=== PATIENT | female | born 1945 | race African-American/Black ===

== ENCOUNTER 2018-12-09 11:59 | Inpatient (IN) | payer MEDICARE, MEDICAID ==
[~2018-12-09] VITALS: Ht 167.6 cm; Wt 84.5 kg
[~2018-12-09 11:59] MED LIST: AMLODIPINE BESY10 MG ORAL; ASPIRIN EC81 MG ORAL; BENAZEPRIL HCL40 MG PO; CLARITIN10 MG ORAL; DIOVAN160 MG ORAL; FLONASE ALLERG9.9 ML NS; HYDROCHLOROTHIA25 MG PO; LORATADINE10 M2 PO; METOPROLOL SUCC50 MG ORAL; METOPROLOL TART25 MG ORAL; METOPROLOL TART50 M1 ORAL; NORVASC5 MG PO; TENORMIN25 MG PO; VITAMIN D1000 UNI1 ORAL; XARELTO10 MG ORAL
[2018-12-09 12:10] VITALS: BP 143/80
--- NOTE | 2018-12-09 12:10 | NUR ---
ED Nurse Note: AMBULATED IN TO ER DUE TO SOB SINCE THIS MORNING. RA, O2 OF 100%. NO HX OF COPD, ASTHMA. PT STATES THAT SHE HAS ANXIETY. NO LABOR BREATHING AT THIS TIME.
[2018-12-09 12:56] VITALS: BP 145/85
[2018-12-09 13:00] LABS: BASOPHILS % (AUTO) 0.8 % (0.0-2.0); EOSINOPHILS % (AUTO) 0.6 % (0.0-3.0); HEMATOCRIT 43.5 % (37.0-47.0); LYMPHOCYTES % (AUTO) 21.2 % (20.0-45.0); MEAN CORPUSCULAR VOLUME 92 FL (80-99); MONOCYTES % (AUTO) 6.4 % (1.0-10.0); PLATELET COUNT 290 K/UL (150-450); RED BLOOD COUNT 4.71 M/UL (4.20-5.40); RED CELL DISTRIBUTION WIDTH 12.3 % (11.6-14.8)
[2018-12-09 13:12] LABS: ANION GAP 9 mmol/L (5-15); BLOOD UREA NITROGEN 27 mg/dL (7-18); CALCIUM 10.2 MG/DL (8.5-10.1); CARBON DIOXIDE 29 MMOL/L (21-32); CHLORIDE 102 MMOL/L (98-107); CREATININE 1.3 MG/DL (0.55-1.30); POTASSIUM 3.5 MMOL/L (3.5-5.1); SODIUM 140 MMOL/L (136-145)
--- NOTE | 2018-12-09 13:19 | Emergency Room Report ---
History of Present Illness General Chief Complaint: Dyspnea/Respdistress Source: Patient Present Illness HPI Patient presents with complaints of chest pain and heaviness also complains of exertional dyspnea Denies any vomiting or diarrhea Denies any pleurisy Denies any recent travel Denies any change with position Patient has not had any change with her medications reports that she saw her physician last week Allergies: Coded Allergies: CLONIDINE (Verified Allergy, Unknown, 07/06/16) feels like fading away TOMATO (Verified Allergy, Unknown, 09/27/15) Uncoded Allergies: tomato sauce (Allergy, Unknown, 09/27/15) Patient History Past Medical History: see triage record Pertinent Family History: none Reviewed Nursing Documentation: PMH: Agreed; PSxH: Agreed Nursing Documentation-PMH Past Medical History: No History, Except For Hx Cardiac Problems: Yes - DVT Hx Hypertension: Yes Hx Diabetes: No Hx Cancer: No Hx Gastrointestinal Problems: Yes Hx Neurological Problems: No Hx Syncope: Yes Hx Weakness: Yes Hx Fatigue: Yes Review of Systems All Other Systems: negative except mentioned in HPI Physical Exam Vital Signs Date Time Temp Pulse Resp B/P (MAP) Pulse Ox O2 Delivery O2 Flow Rate FiO2 12/09/18 12:03 98.4 110 22 158/102 91 Room Air Sp02 EP Interpretation: reviewed, normal General Appearance: well appearing, no apparent distress Head: normocephalic, atraumatic Eyes: bilateral eye PERRL, bilateral eye EOMI ENT: hearing grossly normal, normal pharynx, TMs + canals normal, uvula midline Neck: full range of motion, supple, no meningismus, no bony tend Respiratory: lungs clear, normal breath sounds, no rhonchi, no respiratory distress, no retraction, no accessory muscle use Cardiovascular #1: normal peripheral pulses, regular rate, rhythm, no edema, no gallop, no JVD, no murmur Gastrointestinal: normal bowel sounds, non tender, soft, no mass, no organomegaly, non-distended, no guarding, no hernia, no pulsatile mass, no rebound Genitourinary: no CVA tenderness Musculoskeletal: normal inspection Neurologic: oriented x3, responsive, fire services plumber III-XII nml as tested, motor strength/ tone normal, sensory intact Psychiatric: mood/affect normal Skin: normal color, no rash, warm/dry, palpation normal Lymphatic: normal inspection, no adenopathy Medical Decision Making Diagnostic Impression: Primary Impression: Dyspnea Additional Impressions: ACS (acute coronary syndrome) NSTEMI (non-ST elevated myocardial infarction) ER Course Patient is a fairly complex patient with multiple differential to consideration including but not limited to cardiac cardiopulmonary and vascular emergencies Patient's blood work reveals elevated troponin Patient is provided with aspirin Consideration for pulmonary ambles him is also made however patient does not show any signs of pleurisy or hypoxia Patient will have further inpatient care Labs Test 12/09/18 12:40 White Blood Count 7.0 K/UL (4.8-10.8) Red Blood Count 4.71 M/UL (4.20-5.40) Hemoglobin 14.0 G/DL (12.0-16.0) Hematocrit 43.5 % (37.0-47.0) Mean Corpuscular Volume 92 FL (80-99) Mean Corpuscular Hemoglobin 29.7 PG (27.0-31.0) Mean Corpuscular Hemoglobin Concent 32.2 G/DL (32.0-36.0) Red Cell Distribution Width 12.3 % (11.6-14.8) Platelet Count 290 K/UL (150-450) Mean Platelet Volume 5.7 FL (6.5-10.1) Neutrophils (%) (Auto) 71.0 % (45.0-75.0) Lymphocytes (%) (Auto) 21.2 % (20.0-45.0) Monocytes (%) (Auto) 6.4 % (1.0-10.0) Eosinophils (%) (Auto) 0.6 % (0.0-3.0) Basophils (%) (Auto) 0.8 % (0.0-2.0) Sodium Level 140 MMOL/L (136-145) Potassium Level 3.5 MMOL/L (3.5-5.1) Chloride Level 102 MMOL/L (98-107) Carbon Dioxide Level 29 MMOL/L (21-32) Anion Gap 9 mmol/L (5-15) Blood Urea Nitrogen 27 mg/dL (7-18) Creatinine 1.3 MG/DL (0.55-1.30) Estimat Glomerular Filtration Rate mL/min (>60) Glucose Level 150 MG/DL (74-106) Calcium Level 10.2 MG/DL (8.5-10.1) Total Bilirubin 0.4 MG/DL (0.2-1.0) Aspartate Amino Transf (AST/SGOT) 28 U/L (15-37) Alanine Aminotransferase (ALT/SGPT) 31 U/L (12-78) Alkaline Phosphatase 103 U/L (46-116) Total Creatine Kinase 89 U/L (26-308) Creatine Kinase MB 3.6 NG/ML (0.0-3.6) Creatine Kinase MB Relative Index 4.0 Troponin I 0.507 ng/mL (0.000-0.056) Pro-B-Type Natriuretic Peptide 88 pg/mL (0-125) Total Protein 9.1 G/DL (6.4-8.2) Albumin 3.9 G/DL (3.4-5.0) Globulin 5.2 g/dL Albumin/Globulin Ratio 0.8 (1.0-2.7) EKG Diagnostic Results Rate: normal Rhythm: NSR ST Segments: other - Nonspecific ST changes, nonspecific interventricular block Rhythm Strip Diag. Results EP Interpretation: yes Rate: 90 Rhythm: NSR, no PVC's, no ectopy Chest X-Ray Diagnostic Results Chest X-Ray Diagnostic Results : Chest X-Ray Ordered: Yes # of Views/Limited/Complete: 1 View Indication: Chest Pain EP Interpretation: Yes Interpretation: no consolidation, no effusion, no pneumothorax Impression: No acute disease Electronically Signed by: Priscilla Mora DO Last Vital Signs Date Time Temp Pulse Resp B/P (MAP) Pulse Ox O2 Delivery O2 Flow Rate FiO2 12/09/18 12:56 98.0 110 17 145/85 100 Room Air Status: improved Disposition: ADMITTED INPATIENT Condition: Serious Referrals: Mumtaz Mcclelland MD (PCP) Priscilla Mora DO Dec 09, 2018 13:19
[2018-12-09 13:26] LABS: ALANINE AMINOTRANSFERASE 31 U/L (12-78); ALBUMIN 3.9 G/DL (3.4-5.0); ALBUMIN/GLOBULIN RATIO 0.8 (1.0-2.7); ALKALINE PHOSPHATASE 103 U/L (46-116); ASPARTATE AMINO TRANSFERASE 28 U/L (15-37); BILIRUBIN,TOTAL 0.4 MG/DL (0.2-1.0); CKMB 3.6 NG/ML (0.0-3.6); CREATINE KINASE 89 U/L (26-308)
[2018-12-09 14:22] VITALS: BP 145/85
--- NOTE | 2018-12-09 14:37 | Diagnostic Imaging Report ---
Indication: Shortness of breath Technique: One view of the chest Comparison: 09/26/2015 Findings: The heart is borderline enlarged. The lungs and pleural spaces remain clear. Impression: Borderline cardiomegaly. No acute process
--- NOTE | 2018-12-09 14:39 | NUR ---
ED Nurse Note: per patient she had aspirin 325mg today morning, ERMD notifyed, will not administed aspirin 325mg.
--- NOTE | 2018-12-09 15:26 | NUR ---
ED Nurse Note: tryed to give report to MANUEL Louie unsuccessfully.
--- NOTE | 2018-12-09 16:00 | NUR ---
NURSE NOTES: I received the patient from the ER. Patient alert and oriented x4. Patient's belongings reviewed and confirmed. Patient's IV intact. Patient oriented to the room and the use of the call light. Bed in the lowest position and call light within reach.
--- NOTE | 2018-12-09 16:08 | NUR ---
ED Nurse Note: patient was admited to tele, report was given to MANUEL Louie. AAO x 4, VSS at this time, ambulatory. patient was transfered by ACLS protocol.
[2018-12-09] MEDS ORDERED: LATANOPROST 0.7.5 ML OP (17:16)
[2018-12-09] MEDS ORDERED: ASPIRIN500 MG ORAL (17:16)
[2018-12-09] MEDS ORDERED: MULTIVITAMINS1 EAC2 ORAL (17:55)
[2018-12-09] MEDS ORDERED: LOSARTAN POTAS100 MG ORAL (17:55)
[2018-12-09 19:01] LABS: BASOPHILS % (AUTO) 0.8 % (0.0-2.0); EOSINOPHILS % (AUTO) 0.4 % (0.0-3.0); HEMATOCRIT 37.8 % (37.0-47.0); HEMOGLOBIN 12.6 G/DL (12.0-16.0); LYMPHOCYTES % (AUTO) 24.8 % (20.0-45.0); MEAN CORPUSCULAR VOLUME 91 FL (80-99); MONOCYTES % (AUTO) 6.5 % (1.0-10.0); NEUTROPHILS % (AUTO) 67.4 % (45.0-75.0); PLATELET COUNT 259 K/UL (150-450); RED BLOOD COUNT 4.16 M/UL (4.20-5.40); RED CELL DISTRIBUTION WIDTH 11.9 % (11.6-14.8); WHITE BLOOD COUNT 9.8 K/UL (4.8-10.8)
[2018-12-09 19:19] LABS: CKMB 7.2 NG/ML (0.0-3.6)
[2018-12-09] MEDS: Losartan 50mg tab ORAL SCH (19:24)
--- NOTE | 2018-12-09 19:31 | NUR ---
NURSE NOTES: Message left for Dr. Mcclelland making him aware of the patient's troponin level.
--- NOTE | 2018-12-09 19:43 | NUR ---
HAND-OFF: Report given to MANUEL Strickland.
--- NOTE | 2018-12-09 19:46 | NUR ---
NURSE NOTES: RECEIVED PATIENT RESTING IN BED, NO COMPLAINTS OF CHEST PAIN OR SOB AT THIS TIME. FALL PRECAUTIONS IN PLACE: CALL LIGHT AND BEDSIDE TABLE WITHIN REACH, BED IN LOW POSITION. WILL PLACE COMMODE AT BEDSIDE. WILL START HEPARIN DRIP ORDERED. TROPONIN 1.300, PER AM RN MESSAGE LEFT FOR DR. RODRIGUEZ. PLAN OF CARE REVIEWED WITH PATIENT.
[2018-12-09 20:00] VITALS: BP 124/88
[2018-12-09] MEDS: Heparin 25,000u/D5W 500ml 500 ML IV SCH (20:06)
--- NOTE | 2018-12-09 20:30 | NUR ---
NURSE NOTES: DR. RODRIGUEZ CALLED WITH DIET ORDER. AWARE OF TROPONIN LEVEL 1.300
[2018-12-09] MEDS: Metoprolol Succinate XL 50mg tab ORAL SCH (23:15)
--- NOTE | 2018-12-09 23:40 | NUR ---
NURSE NOTES: CALLED AND LEFT MESSAGE FOR DR. RODRIGUEZ TO ORDER PARAMETER FOR BP MEDS.
[2018-12-10] VITALS: BP 102/77
--- NOTE | 2018-12-10 02:16 | Consultation ---
DATE OF CONSULTATION: 12/10/2018 CARDIOLOGY CONSULTATION CONSULTING PHYSICIAN: Mumtaz Mcclelland M.D. REQUESTING PHYSICIAN: Beck Rose M.D. REASON FOR CONSULTATION: Elevated troponin level. HISTORY OF PRESENT ILLNESS: This is a 73-year-old female, known to me from prior care. She has a longstanding history of hypertensive heart disease and hyperlipidemia as well as hypercoagulable state with prior history of DVT. She has been off anticoagulation for at least the last 6 to 12 months following a negative follow up evaluation for DVT. She has had prior outpatient stress echocardiogram studies that have been entirely normal. She presented to the emergency room today complaining of shortness of breath with exertion and heaviness in her chest and weakness. Her initial troponin level was slightly negative and hospitalization was initiated. ALLERGIES: Include clonidine. PAST MEDICAL HISTORY: Notable for hypertension, glucose intolerance, hypercoagulable state, history of DVT, gastroesophageal reflux disease, allergic rhinitis, vitamin D deficiency, glaucoma, and history of pancreatic cyst. FAMILY HISTORY: Noncontributory. SOCIAL HISTORY: Negative for smoking, alcohol, or substance abuse. REVIEW OF SYSTEMS: A 10-point review of systems was otherwise negative. PHYSICAL EXAMINATION: VITAL SIGNS: Blood pressure 145/78, pulse 97, respirations 20, afebrile. LUNGS: Clear. CARDIAC: Regular. Normal S1, S2. There is a fourth heart sound. ABDOMEN: Soft. EXTREMITIES: No edema. LABORATORY AND DIAGNOSTIC DATA: White count 9.8 and hemoglobin 12.6. Troponin 1 is , troponin 2 is 1.3. CK is 104, MB is 7.2, index 6.9. Potassium 3.5, BUN 27, creatinine 1.3. EKG, sinus rhythm, nonspecific ST change. Venous duplex negative for DVT. IMPRESSION: 1. Acute myocardial infarction, non-ST elevation type. 2. Possible pulmonary embolic event. 3. Hypertensive heart disease. 4. History of hypercoagulability. 5. Glucose intolerance. PLAN: 1. Antiplatelet therapy. 2. IV heparin. 3. VQ scan. 4. Titrate antihypertensives. 5. Add beta-guille. 6. Check D-dimers. 7. Check venous duplex. 8. Further recommendations will follow based on clinical course and serial troponin level and lipid panel has been requested. 9. Statin therapy to be considered. Mumtaz Mcclelland M.D. DR: ROLAND JOB#: [id number] CC:
--- NOTE | 2018-12-10 02:58 | NUR ---
NURSE NOTES: PTT 73. PER PHARMACY AND HEPARIN DRIP PROTOCOL TO CONTINUE WITH PRESENT RATE 18 UNITS/KG/HR ( 30.42 ML/HR). NEXT PTT TOMORROW AT 0400
[2018-12-10 04:00] VITALS: BP 118/81
[2018-12-10 04:55] LABS: ALANINE AMINOTRANSFERASE 24 U/L (12-78); ALBUMIN 3.1 G/DL (3.4-5.0); ALBUMIN/GLOBULIN RATIO 0.7 (1.0-2.7); ALKALINE PHOSPHATASE 87 U/L (46-116); ANION GAP 5 mmol/L (5-15); ASPARTATE AMINO TRANSFERASE 26 U/L (15-37); BILIRUBIN,TOTAL 0.4 MG/DL (0.2-1.0); BLOOD UREA NITROGEN 23 mg/dL (7-18); CALCIUM 9.9 MG/DL (8.5-10.1); CARBON DIOXIDE 33 MMOL/L (21-32); CHLORIDE 106 MMOL/L (98-107); CHOLESTEROL 247 MG/DL (< 200); CREATININE 1.2 MG/DL (0.55-1.30); HDL CHOLESTEROL 112 MG/DL (40-60); POTASSIUM 3.8 MMOL/L (3.5-5.1); SODIUM 144 MMOL/L (136-145); TRIGLYCERIDES 38 MG/DL (30-150)
--- NOTE | 2018-12-10 06:31 | Consultation ---
DATE OF CONSULTATION: 12/09/2018 NOTE: POOR AUDIO HEMATOLOGY/ONCOLOGY CONSULTATION CONSULTING PHYSICIAN: Frank Thorne M.D. REFERRING PHYSICIAN: Mumtaz Mcclelland M.D. REASON FOR CONSULTATION: Hypercoagulable state shortness of breath and previous history of pulmonary embolus. HISTORY OF PRESENT ILLNESS: The patient is an extremely pleasant female, born on 1945. The patient has been known from outside visit in my office 2014. The patient was evaluated for shortness of breath. CT angiogram of the chest on 09/28/2015, which demonstrates evidence of bilateral pulmonary emboli. The patient subsequently had extensive hematologic evaluation. The patient's workup at that time was negative. The patient was treated with prolonged course of anticoagulants, subsequently she was taken off anticoagulants. The patient currently has presented to the hospital with significant shortness of breath. It should be noted that the patient has had an extensive history of underlying hypercoagulable state that has been negative. Imaging studies have also been negative for underlying malignancy. . The patient did undergo hypercoagulable evaluation with platelet mapping, did demonstrate evidence of as well as mild hypercoagulable state despite Xarelto. At that time, Xarelto was continued and aspirin twice a week was added. The patient also has had a history of pancreatic tail cystic lesion has been evaluated by MRI as well as GI evaluation by Dr. Armas. The patient has EUS. The patient did have repeat . Decision at some point subsequently to hold off on the patient's Xarelto and follow the patient clinically. The patient did have an MRI of her abdomen in November of 2016 demonstrating the same findings with cystic pancreatic lesion. We evaluated the patient in November of 2018. The patient's D-dimer at that time was noted to be 1.14. On 09/19/2018 to continue to hold off on anticoagulation . PAST MEDICAL HISTORY: History of vitamin D deficiency DVT, pulmonary embolism, history of hypertension, anemia, pulmonary hypertension, cardiomegaly, thyroid nodule, pulmonary embolus, liver lesion, hypercoagulable state, and pancreatic lesion. PAST SURGICAL HISTORY: History of hysterectomy in 1976. FAMILY HISTORY: History of sister with breast cancer and brother with liver cancer. SOCIAL HISTORY: No history of tobacco, alcohol, or drugs. REVIEW OF SYSTEMS: CONSTITUTIONAL: The patient headaches wake up early in the morning with shortness of breath. CARDIAC: The patient chest pain. NEUROLOGIC: No focal weakness or numbness. SKIN: The patient denies any bruising or petechia. PHYSICAL EXAMINATION: VITAL SIGNS: The patient has a pulse of 110, respiratory rate 17, blood pressure 143/80, and pulse oximetry 100%. Currently, the patient is not short of breath. CHEST: Clear to auscultation. CARDIAC: Regular rhythm. S1 and S2. ABDOMEN: Soft, nontender, and nondistended. No hepatosplenomegaly. EXTREMITIES: Trace edema. NEUROLOGICAL: Nonfocal. LABORATORY DATA: Include white count of 7, hemoglobin 14, and platelet count of 290. The patient has a calcium of 10.2, a creatinine of 1.3, alkaline phosphatase of 103. Troponin . The patient did undergo a chest x-ray this morning demonstrating borderline primary edema acute process. ASSESSMENT AND PLAN: 1. Acute onset of shortness of breath. The patient is in hypercoagulable state. The patient did undergo a may not be able to be done overnight. The patient will be started on heparin . The patient does have back on Xarelto full dose another bout of pulmonary embolus with known cause. The patient is to be on anticoagulation. 2. Pancreatic cyst. Follow with Dr. Thorne on an outpatient basis. 3. Increase ambulation. 4. Elevated troponin. Per Cardiology, Dr. Mcclelland. 5. Hypertension. Per Dr. Mcclelland. Frank Thorne M.D. DR: AURORA JOB#: [id number] CC:
--- NOTE | 2018-12-10 07:16 | NUR ---
NURSE NOTES: CALLED AND LEFT MESSAGE FOR DR. RODRIGUEZ RE: TROPONIN RESULT 1.275
--- NOTE | 2018-12-10 07:35 | NUR ---
HAND-OFF: Report given to MANUEL GUAJARDO. PATIENT RESTING IN BED, NO SIGNS OF BLEEDING OR DISTRESS NOTED.
--- NOTE | 2018-12-10 07:36 | NUR ---
NURSE NOTES: Received report from MANUEL Strickland. Patient is alert, oriented x4 and is in stable condition. Patient denies any pain discomfort at this time. Will continue plan of care.
[2018-12-10 08:00] VITALS: BP 135/88
[2018-12-10] MEDS: Aspirin Baby 81mg ORAL SCH (09:08)
[2018-12-10] MEDS: Losartan 50mg tab ORAL SCH (09:09)
[2018-12-10] MEDS: Metoprolol Succinate XL 50mg tab ORAL SCH (09:09)
--- NOTE | 2018-12-10 09:49 | NUR ---
CASE MANAGEMENT:REVIEW 73 YR OLD FEMALE TO ER CC : SOB SI: ACS. NSTEMI 98.4 110 22 158/102 91% ON RA TROPONIN(+) 0.507 AND 1.300 IS: ASA PO X1 BLOOD CX CHEST XRAY : TO TELEMETRY HEPARIN GTT ASA PO QD HCTZ PO QD TOPROL XL PO QD COZAAR PO QD INTERQUAL CRITERIA MET
[2018-12-10 12:00] VITALS: BP 119/80
--- NOTE | 2018-12-10 12:11 | Diagnostic Imaging Report ---
Indications: Shortness of breath, history of deep venous thrombosis Technique: IV administration 5.5 mCi 99m technetium macroaggregated albumin. Images obtained over the lungs in multiple projections. Previously, patient inhaled 40 mCi aerosolized 99M technetium DTPA. Images obtained over the lungs in multiple projections Comparison: Chest radiograph 12/09/2018 Findings: A mismatch perfusion defect is seen involving the right middle lobe. There is also decreased perfusion with normal aerosol mismatch involving the left lower lobe and the liver likely the posterior basilar right lower lobe. Lungs on chest radiograph appear normal. Impression: Multiple large perfusion/aerosol this matches. Findings are deemed high probability for pulmonary embolus Dr. Mcclelland notified of the findings at the time of interpretation
--- NOTE | 2018-12-10 13:00 | NUR ---
NURSE NOTES: Still running heparin drip with 30.42ml/hr.
--- NOTE | 2018-12-10 14:00 | NUR ---
NURSE NOTES: Still running heparin drip with 30.42ml/hr.
[2018-12-10] MEDS: Heparin 25,000u/D5W 500ml 500 ML IV SCH (14:53)
--- NOTE | 2018-12-10 14:53 | NUR ---
NURSE NOTES: Changed heparin drip bag with 30.42ml/hr. No s/s of bleeding noted. Patient denies any discomfort/pain. Will continue plan of care.
--- NOTE | 2018-12-10 15:21 | Cardiology Report ---
APPROVED REPORT EKG Measurement Heart [id number] NC 198P58 [id number] Sinus tachycardia Possible Left atrial enlargement Incomplete right bundle branch block Inferior infarct, age undetermined Anterior infarct, age undetermined Abnormal ECG
[2018-12-10 16:00] VITALS: BP 100/72
[2018-12-10] MEDS: Xarelto 15mg tab ORAL SCH (17:08)
--- NOTE | 2018-12-10 19:18 | NUR ---
NURSE NOTES: Received report from Yuki RN, pt. in bed awake, A/O x's4- able to make needs known, no signs or symptoms of acute cardiac or respiratory distress noted, bed in lowest position and call light within easy reach, pt. appears to be sating well on room air at 97%- no distress noted, per endorsement pt. ambulates with steady gate to bathroom- pt. is aware to ask for assistance when ambulating, Left AC 20G IV intact and patent, safety measures continued, will continue with plan of care.
--- NOTE | 2018-12-10 19:27 | NUR ---
HAND-OFF: Report given to MANUEL Cantu. Patient is in stable condition. Endorsed plan of care.
[2018-12-10 20:00] VITALS: BP 115/62
--- NOTE | 2018-12-10 23:31 | Progress Note ---
DATE: 12/10/2018 CARDIOLOGY PROGRESS NOTE SUBJECTIVE: The patient is without chest pain or shortness of breath today. Her ventilation/perfusion scan was high probability for pulmonary embolus. Troponin is 1.27 today. Laboratories are reviewed. High HDL of over 100 is noted. Albumin 3.1. OBJECTIVE: VITAL SIGNS: Blood pressure 119/80, pulse 76, and respirations 18. NECK: Supple. LUNGS: Clear. CARDIAC: Regular. ABDOMEN: Soft. EXTREMITIES: No edema. IMPRESSION: 1. Acute pulmonary embolus. 2. History of prior DVT. 3. History of hypercoagulable state. 4. Hypertensive heart disease. 5. High HDL syndrome. 6. Possible right ventricular injury. PLAN: 1. Discontinue IV heparin. 2. Start rivaroxaban 15 b.i.d. for 2 weeks followed by 20 mg daily indefinitely. 3. Discharge planning home. Mumtaz Mcclelland M.D. DR: MELANIE JOB#: [id number] CC:
[2018-12-11] VITALS: BP 128/79
--- NOTE | 2018-12-11 02:32 | History and Physical Report ---
DATE OF ADMISSION: 12/09/2018 CHIEF COMPLAINT: Chest pain. HISTORY OF PRESENT ILLNESS: The patient is a pleasant female. She has a history of hypercoagulable state, DVT, and PE. She presented from home with complaints of chest pain. According to the patient, she was well when she developed pressure-like chest pain. She denies any shortness of breath. On initial evaluation, her troponin was negative. She has been off anticoagulation for around a year now. Her EKG was also unchanged. She is now admitted for further evaluation of her chest pain. PAST MEDICAL HISTORY: As above. PAST SURGICAL HISTORY: None. CURRENT MEDICATIONS: Reconciled and reviewed. ALLERGIES: Include clonidine. FAMILY HISTORY: Noncontributory. SOCIAL HISTORY: There is no known history of tobacco, ethanol, or drugs. REVIEW OF SYSTEMS: GENERAL: No fevers or chills. HEENT: No headaches or visual changes. CARDIOPULMONARY: Positive chest pain, but no shortness of breath. GASTROINTESTINAL: No nausea or vomiting. GENITOURINARY: No urgency or frequency. MUSCULOSKELETAL: No joint pain or swelling. NEUROLOGIC: No evidence of seizures. PHYSICAL EXAMINATION: VITAL SIGNS: Temperature 98 degrees, blood pressure 140/70, pulse 80, respirations 20. GENERAL: The patient is well-developed, no apparent distress. HEART: Regular rate and rhythm. LUNGS: Clear. ABDOMEN: Soft, nontender, and nondistended. EXTREMITIES: Without clubbing, cyanosis, or edema. LABORATORY DATA: White count 10 and hemoglobin 12. Troponin was 0.507. ASSESSMENT: This is a pleasant female with history of hypercoagulable state, hypertension, GERD, vitamin D deficiency, admitted with chest pain, possibly secondary to either acute coronary syndrome or PE. PLAN: Heparin drip. Followup VQ scan. Cardiology and Hematology and Oncology consultations. Further plan of care will be determined after review of pending tests. Beck Rose M.D. DR: ROD JOB#: [id number] CC:
[2018-12-11 04:00] VITALS: BP 118/74
--- NOTE | 2018-12-11 07:14 | NUR ---
HAND-OFF: Report given to Yuki JACKSON, pt. remains stable and no signs of distress noted.
--- NOTE | 2018-12-11 07:31 | NUR ---
NURSE NOTES: Received report from MANUEL Cantu. Patient is alert, oriented x4 and is in stable condition. Patient denies any pain discomfort at this time. Call light in reach, bed in low position. Will continue plan of care.
--- NOTE | 2018-12-11 07:50 | NUR ---
DISCHARGE PLANNING PATIENT HAS BEEN REFERRED TO [facility] T: [phone] F: [phone]
[2018-12-11 08:00] VITALS: BP 130/80
[2018-12-11] MEDS ORDERED: XARELTO15 MG ORAL (08:17)
[2018-12-11] MEDS: Xarelto 15mg tab ORAL SCH (08:41)
[2018-12-11] MEDS: Losartan 50mg tab ORAL SCH (08:41)
[2018-12-11] MEDS: Aspirin Baby 81mg ORAL SCH (08:41)
[2018-12-11 08:42] VITALS: BP 130/80
[2018-12-11] MEDS: Metoprolol Succinate XL 50mg tab ORAL SCH (08:42)
--- NOTE | 2018-12-11 12:10 | NUR ---
NURSE NOTES: Discharge instruction given to patient and verbalized understanding. Heart monitor and IV line removed, Inventory check done. No sign of distress/SOB noted. Patient is in stable condition.
--- NOTE | 2018-12-11 12:11 | NUR ---
NURSE NOTES: Patient discharged via Taxi
--- NOTE | 2018-12-11 14:14 | Diagnostic Imaging Report ---
APPROVED REPORT CPT Code: 03723 Present Symptoms Comments: BILATERAL LEGS PAIN. BILATERAL: Imaging reveals a patent deep venous system bilaterally. There is no evidence of thrombus within the femoral, popliteal or tibial segments. The greater saphenous veins are also within normal limits. Doppler indicates normal spontaneous flow within these segments.
--- NOTE | 2018-12-11 21:02 | Discharge Summary ---
DATE OF ADMISSION: 12/09/2018 DATE OF DISCHARGE: 12/11/2018 ADMISSION DIAGNOSES: 1. Chest pain. 2. History of hypercoagulable state. 3. History of DVT and PE. DISCHARGE DIAGNOSES: 1. Chest pain. 2. History of hypercoagulable state. 3. History of DVT and PE. 4. . HOSPITAL COURSE: The patient is a pleasant 73-year-old female who presented with complaints of chest pain. She was admitted. She did have an elevated troponin. She had a V/Q scan that was high probability. She was resumed back on anticoagulation and was felt that high troponin was likely related to her pulmonary embolism. On discharge, she was stable. She was chest pain free. She will be continued on Xarelto indefinitely. The patient has been instructed to monitor for any signs or symptoms of bleeding. She will be followed up in the office in one week. DISCHARGE MEDICATIONS: Please see discharge medication list for discharge medications. DIET: Regular. ACTIVITY: Ad-siddharth. Beck Rose M.D. DR: Mikal JOB#: [id number] CC:
--- NOTE | 2018-12-16 02:15 | Progress Note ---
DATE: 12/11/2018 CARDIOLOGY PROGRESS NOTE Late entry for 12/11/2018. SUBJECTIVE: The patient has no chest pain. No shortness of breath. She is on anticoagulation. No bleeding sites noted. She has been on this drug in the past. OBJECTIVE: VITAL SIGNS: Blood pressure 130/80, pulse 62, and respirations 16. LUNGS: Clear. CARDIAC: Regular. Normal S1, S2 with a fourth heart sound. ABDOMEN: Soft. EXTREMITIES: No edema. IMPRESSION: 1. Hypercoagulable state. 2. Recurring pulmonary emboli. 3. Hypertensive heart disease. 4. Acute myocardial ischemia precipitated by acute pulmonary embolic event. PLAN: 1. Recommend full anticoagulation senior care. 2. Monitor for bleeding complications as outpatient. 3. Continue low-dose aspirin. 4. Maintain current antihypertensives. 5. Discussed with the patient, who understands risks of anticoagulation therapy and benefits in this clinical setting. Mumtaz Mcclelland M.D. DR: MELANIE JOB#: [id number] CC:
== END 2018-12-11 12:10 | disposition home health service (06) | DRG 176 ==
LOC: EMR 12:39 → 2E 13:25 → EDBEDREQ 15:14
DX: I26.99 Other pulmonary embolism without acute cor pulmonale (principal); D68.59 Other primary thrombophilia; K86.2 Cyst of pancreas; K21.9 Gastro-esophageal reflux disease without esophagitis; I11.9 Hypertensive heart disease without heart failure; R73.09 Other abnormal glucose; Z88.8 Allergy status to other drugs, medicaments and biological substances; H40.9 Unspecified glaucoma
CPT/HCPCS: 36415; 71045; 78579; 78580; 80053; 80061; 82550; 82553; 83735; 83880; 84484; 85025; 85362; 85730; 87040; 93005; 93970; 99285; A9503

== ENCOUNTER 2019-01-28 11:39 | Outpatient (CLI) | payer MEDICARE, MEDICAID ==
[~2019-01-28 11:39] MED LIST changes: +ASPIRIN500 MG ORAL; +LATANOPROST 0.7.5 ML OP; +LOSARTAN POTAS100 MG ORAL; +MULTIVITAMINS1 EAC2 ORAL; +XARELTO15 MG ORAL
--- NOTE | 2019-01-28 13:56 | Diagnostic Imaging Report ---
Indication: Chronic right knee pain Technique: 3 views of the right knee Comparison: None Findings: There is degenerative joint space narrowing of the medial joint compartment. There are medial and lateral osteophytes. There is minimal chondral calcinosis. No suprapatellar effusion. No acute fractures. No dislocations. Impression: Degenerative changes. No acute bony trauma
== END 2019-01-28 13:39 | disposition home or self-care (01) ==
LOC: RAD 11:39
DX: M17.11 Unilateral primary osteoarthritis, right knee (principal)

== ENCOUNTER 2020-11-29 09:03 | Outpatient (CLI) | payer MEDICARE, MEDICAID ==
[2020-11-29 09:30] VITALS: BP 156/103
--- NOTE | 2020-11-29 10:29 | Consultation ---
DATE OF CONSULTATION: 11/29/2020 CHIEF COMPLAINT: Referral for stool OB positive. PAST MEDICAL HISTORY: 1. History Of pancreatic cyst. 2. Anemia. 3. Gastritis. 4. Hemorrhoids. 5. History of DVT and PE. ALLERGIES: No known drug allergies. MEDICATIONS: Please see medication reconciliation list. SOCIAL HISTORY: The patient denies any tobacco, alcohol, or drug abuse. REVIEW OF SYSTEMS: A 10-point review of systems was performed and pertinent positives in the history of HPI. PHYSICAL EXAMINATION: VITAL SIGNS: Temperature 96.2, blood pressure 156/103, pulse 86, respirations 20. HEENT: Normocephalic and atraumatic. Sclerae anicteric. NECK: Supple. No evidence of obvious lymphadenopathy. CARDIOVASCULAR: Regular rate and rhythm. Plus S1, S2. LUNGS: Clear to auscultation bilaterally. ABDOMEN: Positive bowel sounds. Soft and nontender. No rebound. No guarding. No peritoneal sign. EXTREMITIES: No cyanosis, no clubbing, no edema. ASSESSMENT AND PLAN: This is a 75-year-old female with prior history of endoscopy and colonoscopy over 5 years ago, now has stool OB positive. Plan to do endoscopy and colonoscopy. The patient needs to stop the Xarelto 72 hours before the test. In terms of pancreatic cyst, according to the patient, the patient has been followed by CT scan by Dr. Thorne every year and has not grown, next one due in February, we we will follow. I want to thank Dr. Frank Thorne, for this kind referral. Fede Armas M.D. DR: Hanna JOB#: [id number] CC: Frank Thorne M.D.; Fax#: [phone]
== END 2020-11-29 11:03 | disposition home or self-care (01) ==
LOC: PAN 09:03
DX: K92.1 Melena (principal); Z86.718 Personal history of other venous thrombosis and embolism; Z86.711 Personal history of pulmonary embolism; K86.2 Cyst of pancreas
CPT/HCPCS: 99212